=== PATIENT | male | born 1985 | race African-American/Black ===

== ENCOUNTER 2025-09-07 19:24 | Emergency (ER) | payer MEDICAID, SELFPAY ==
[2025-09-07 19:25] VITALS: BMI 37.2
--- NOTE | 2025-09-07 19:33 | EKG_ITS ---
[facility] Test Date: 2025-09-07 Pat Name: CLEVELAND ANDREW Department: Room: - Gender: Male Facility Supervisor: : [id number] Requested By: Joshua Haynes Order Number: [id number] Reading MD: Joshua Haynes Measurements Intervals [place] Rate: 103 P: 58 MS: 122 QRS: 9 QRSD: 84 T: 84 QT: 310 QTc: 408 Interpretive Statements SINUS TACHYCARDIA POSSIBLE LEFT ATRIAL ENLARGEMENT [-0.1mV P-WAVE IN V1/V2] POSSIBLE RIGHT VENTRICULAR CONDUCTION DELAY [RSR (QR) IN V1/V2] NONSPECIFIC ST & T-WAVE ABNORMALITY ABNORMAL RHYTHM ECG Compared to ECG 06/04/2024 21:37:42 T-wave abnormality now present Sinus rhythm no longer present /store/S0/[id number].pdf
[2025-09-07 19:39] VITALS: BP 150/100; PULSE 105; RESP 20; TEMP 36.9; O2SAT 95
--- NOTE | 2025-09-07 19:50 | XR_ITS ---
EXAMINATION: PA chest single view TECHNIQUE: Upright PA chest single view Date and time: September 07, 2025, 1753 hours, comparison June 04, 2024 INDICATIONS: Chest pain shortness of breath beginning 1 month ago FINDINGS: Atelectasis and/or pneumonia left base Marked elevation left hemidiaphragm Colonic ileus Blunting of the right lateral costophrenic angle Normal heart size No pulmonary edema IMPRESSION: Atelectasis and/or pneumonia left base clinical correlation advised
--- NOTE | 2025-09-07 19:51 | XR_ITS ---
Examination: Venous duplex lower extremity sonogram, bilateral. Date and time of exam: September 07, 2025, 0832 hours INDICATIONS: Leg pain and swelling, shortness of breath 1 month Technique: Multiple sonographic images of the deep venous system have been obtained. B-mode/2-D grayscale imaging of vascular structures and Doppler spectral analysis (waveforms) and color performed Both legs are examined. Findings: Deep venous systems do not demonstrate abnormal echogenicity. All visualized deep veins exhibit compressibility. All visualized deep veins exhibit augmentation. Impression: Negative for deep vein thrombosis
[2025-09-07 20:27] LABS: Basophils # (Auto) 0.1 Thou/mm3 (0.0-0.2); Basophils % (Auto) 1 % (0-2.5); Eosinophils # (Auto) 0.3 Thou/mm3 (0.0-0.5); Eosinophils % (Auto) 2 % (0-10); Hematocrit 42.0 % (41.0-53.0); Hemoglobin 13.8 g/dL (13.5-16.0); Immature Granulocytes Auto 0.04 Thou/mm3 (0.00-0.00); Lymphocytes # (Auto) 3.6 Thou/mm3 (1.0-4.8); Lymphocytes % (Auto) 28 % (10-50); Mean Corpuscular HGB Conc 32.9 g/dl (31.0-37.0); Mean Corpuscular Hemoglobin 28.3 pg (25.0-35.0); Mean Corpuscular Volume 86 fL (80-100); Monocytes # (Auto) 1.1 Thou/mm3 (0.0-0.8); Monocytes % (Auto) 8 % (0-12); Neutrophils # (Auto) 8.0 Thou/mm3 (1.8-7.7); Neutrophils % (Auto) 61 % (37-80); Nucleated Red Blood Cell # 0.00 Thou/mm3 (0.00-0.00); Nucleated Red Blood Cell % 0 /100 WBC (0); Platelet Count 294 Thou/mm3 (140-440); RDW Standard Deviation 42.0 fL (35.1-43.9); Red Blood Count 4.87 Miln/mm3 (4.50-5.90); White Blood Count 13.2 Thou/mm3 (3.8-10.6)
[2025-09-07 20:43] LABS: B-Type Natriuretic Peptide < 20 pg/mL (0-100); D-Dimer < 250 ng/mL (<600)
[2025-09-07 21:12] LABS: Collection Type, Urine Clean Catch
[2025-09-07 21:14] LABS: Alanine Aminotransferase 31 U/L (10-49); Albumin, Serum 4.7 gm/dL (3.5-5.0); Albumin/Globulin Ratio 1.7 (1.2-2.2); Alkaline Phosphatase 92 U/L (46-116); Anion Gap 6 (7-16); Aspartate Amino Transferase < 8 U/L (0-34); BUN/Creatinine Ratio 9 Ratio (12-20); Bilirubin,Total 0.4 mg/dL (0.3-1.2); Blood Urea Nitrogen 10 mg/dL (9-23); Calcium 9.8 mg/dL (8.3-10.6); Calcium (Corrected) 9.8 mg/dL (8.5-10.1); Carbon Dioxide 29.5 mMol/L (20.0-31.0); Chloride 106 mMol/L (98-107); Creatinine (Component) 1.1 mg/dL (0.6-1.3); Estimated Creatinine Clearance 131.3 mL/min (>60); Globulin 2.8 gm/dL (2.3-3.5); Glucose 106 mg/dL (74-106); Lipase 25 U/L (12-53); Osmolality,Calculated 280 (275-295); Potassium 4.2 mMol/L (3.4-5.1); Sodium 141 mMol/L (136-145); Thyroid Stimulating Hormone 1.42 uIU/mL (0.55-4.78); Total Protein 7.5 gm/dL (5.7-8.2); Troponin I < 0.020 ng/mL (0.0-0.045); eGFR > 60 See Note
[2025-09-07 21:29] LABS: Bilirubin,Urine Negative (Negative); Blood,Urine Negative (Negative); Clarity,Urine Clear (Clear/Hazy); Color,Urine Lt-Yellow (Lt Yel-Yel); Glucose, Urine Negative (Negative); Ketones,Urine Negative (Negative); Leukocyte Esterase,Urine Negative (Negative); Nitrite,Urine Negative (Negative); PH,Urine 6.5 (5.0-7.0); Protein,Urine Negative (Neg - Trace); RBC,Urine 3 /hpf (0-3); Specific Gravity,Urine 1.014 (1.001-1.035); Squamous Epithelial Cell,Urine < 1 /hpf (0-5); Urobilinogen,Urine Negative mg/dL (0.0-1.0); WBC,Urine 1 /hpf (0-5)
--- NOTE | 2025-09-07 21:49 | PRELIM_ITS ---
Radiograph of the chest (single view). September 07, 2025 at 1952 hours Clinical history: Shortness of breath. Comparison: No prior study is available for comparison. Findings: The heart, mediastinum, and pulmonary tracie are unremarkable. There is a small left pleural effusion with underlying consolidation. The bony thorax is unremarkable. Gas-distended bowel loops are seen in the left upper quadrant. Impression: Small left pleural effusion with underlying consolidation. Report Electronically Signed By: Adriano Schrader 09/07/2025 9:49:08 PM [EST]
--- NOTE | 2025-09-07 21:51 | PRELIM_ITS ---
Bilateral lower extremity venous Doppler ultrasound. September 07, 2025 2032 hours Clinical history: Deep vein thrombosis. Technique: Duplex scan of the bilateral lower extremity deep venous systems was performed utilizing 2D grayscale imaging, Doppler spectral analysis and color flow Doppler and with compression. Comparison: No prior study is available for comparison. Findings: Max scale, color flow and spectral Doppler evaluation of the lower extremity deep veins was performed. Right: The common femoral, superficial femoral and popliteal veins are patent and compressible. The great saphenous vein is patent at the level of the saphenofemoral junction. The peroneal and posterior tibial veins are patent and compressible to the extent visualized. Normal respiratory variation and augmentation are noted. There is no evidence of occlusive or nonocclusive thrombus. Left: The common femoral, superficial femoral and popliteal veins are patent and compressible. The great saphenous vein is patent at the level of the saphenofemoral junction. The peroneal and posterior tibial veins are patent and compressible to the extent visualized. Normal respiratory variation and a ugmentation are noted. There is no evidence of occlusive or nonocclusive thrombus. Impression: No sonographic evidence of deep venous thrombosis in both lower extremities. Report Electronically Signed By: Adriano Schrader 09/07/2025 9:50:25 PM [EST]
[2025-09-07 23:05] VITALS: BP 182/127; PULSE 92; RESP 20; TEMP 36.9; O2SAT 93
--- NOTE | 2025-09-07 23:08 | XR_ITS ---
Examination: CT chest, without intravenous contrast. Sagittal and coronal 2-D reconstructions. Exam date and time: September 08, 2025, 0020 hours INDICATION: Shortness of breath today CTDI:vol (mGy) 19.61 DLP: (mGycm) 949 Technique: Multiple 3.0 mm axial sections of the chest to been obtained. Bone and lung density settings are obtained. Sagittal and coronal 2-D reconstructions have been obtained. Low dose protocols were performed. One or more of the following dose reduction techniques were used; automated exposure control, adjustment of the mA and/or KV according to patient size, use of iterative reconstruction technique. Findings: No thoracic aortic aneurysm dilatation Pulmonary artery segments are nonenlarged No paratracheal tracheobronchial or bronchopulmonary adenopathy Atelectasis versus pneumonia left base Mild elevation left hemidiaphragm No pulmonary edema No visualized liver or splenic lesion No pancreatic or adrenal mass No hydronephrosis Adequate bone density Thoracolumbar dextroscoliosis IMPRESSION: Pneumonia versus atelectasis in the left lower lobe
[2025-09-07] MEDS: ALBUTEROL/IPRATROPIUM (Duoneb) RT SOL 3 ML NEBU INH (23:29)
[2025-09-07 23:30] VITALS: PULSE 83; RESP 23; O2SAT 88
[2025-09-07 23:34] LABS: Procalcitonin 0.06 ng/ml (0.0-0.49)
[2025-09-07 23:35] VITALS: BP 160/129; PULSE 81; RESP 20; TEMP 37; O2SAT 92
[2025-09-07 23:43] VITALS: BP 160/114; PULSE 81
[2025-09-07] MEDS: FUROSEMIDE INJ 10 MG/ML 4ML VIAL 80 MG IVP (23:43)
[2025-09-07] MEDS: AZITHROMYCIN INJ 500 MG in SODIUM CHLORIDE 0.9% 250 ML 250 ML 250 MG IV (23:44)
[2025-09-07 23:57] VITALS: BP 160/114; PULSE 81
--- NOTE | 2025-09-08 00:11 | PD.EDRME ---
Rapid Medical Screening Exam RME Arrival date/time: 09/07/25 19:24 This is a case of 39-year-old male who came into the emergency room due to chest pain and shortness of breath with palpitation on and off for 1 month worsening of the symptoms now also with swelling on both lower extremities thus decided to start consult here in the emergency room Chief Complaint: Shortness of Breath/Dyspnea Time Seen by Provider: 09/07/25 19:35 Vital signs: Vital Signs Temperature 98.4 F 09/07/25 19:39 Pulse Rate 105 H 09/07/25 19:39 Respiratory Rate 20 09/07/25 19:39 Blood Pressure 150/100 H 09/07/25 19:39 Pulse Oximetry (%) 95 09/07/25 19:39 Oxygen Delivery Method Room Air 09/07/25 19:39 Exam: Diminished breath sounds left with pitting edema 2+ Clinical Impression: Shortness of breath chest pain both lower extremities edema
--- NOTE | 2025-09-08 00:15 | PC.NURSE ---
Pt taken to CT via wheelchair
[2025-09-08] MEDS: LEVOFLOXACIN 250 MG TABLET 750 MG PO (00:35)
--- NOTE | 2025-09-08 00:35 | EDNOTE_ITS ---
ED SOB =RME/HPI General Chief Complaint: Shortness of Breath/Dyspnea Stated Complaint: SOB AND INTERMITENT CXP Time Seen by Provider: 09/07/25 19:35 Arrival date/time: 09/07/25 19:24 RME / HPI RME / HPI Narrative: 09/07/25 19:24 This is a case of 39-year-old male who came into the emergency room due to chest pain and shortness of breath with palpitation on and off for 1 month worsening of the symptoms now also with swelling on both lower extremities thus decided to start consult here in the emergency room DR. PIERRE MAIN ED EVALUATION: Patient presenting with progressive dyspnea/orthopnea for approximately 2 weeks duration. Denies sustained chest pain, productive cough, fever or chills. Does report occasional audible wheeze. No extremity pain or swelling. PMH: Recreational Drug Use, Asthma, Sleep Apnea, Bipolar Disorder, Depression, Anxiety and Attention Deficit Hyperactivity Disorder PSH: Non-contributory Allergies: Penicillin Social: Opioid Dependence, Positive Tobacco, No significant alcohol consumption Exam: Diminished breath sounds left with pitting edema 2+ Impression: Shortness of breath chest pain both lower extremities edema Related Data Previous Rx's ?Medication ?Instructions ?Recorded ciprofloxacin HCl 500 mg tablet 500 mg PO Q12H #14 tab s 03/11/23 (Cipro) dicyclomine 20 mg tablet 20 mg PO QID PRN abdominal p ain 03/11/23 #30 tabs metronidazole 500 mg tablet 500 mg PO TID #21 tabs 10/22 ibuprofen 600 mg tablet 600 mg PO Q8H PRN fever #20 tabs 03/04/24 albuterol sulfate 90 mcg/actuation 2 puff inhalation Q 6H PRN 09/08/25 aerosol inhaler (Ventolin HFA) shortness of breath or wheezing #8.5 grams hydrochlorothiazide 25 mg tablet 25 mg PO QAM #30 tabs 09/08/25 isosorbide dinitrate 30 mg tablet 30 mg PO DAILY #30 t abs 09/08/25 Allergies Allergy/AdvReac Type Severity Reaction Status Date / Time mustard Allergy Severe THROAT Verified 09/07/25 19:32 SWELLS,LIPS SWELL Penicillins Allergy Severe Rash Verified 09/07/25 19:32 shellfish derived Allergy Severe THROAT Verified 09/07/25 19:32 CLOSES,SWELLS UP,RASH Review of Systems Review of Systems Systems Reviewed: All systems reviewed, normal except as documented Past Medical History Past Medical History RESPIRATORY: Positive Asthma (sleep apnea) and Sleep Apnea PSYCHO/SOCIAL: Positive Bipolar Disorder, Depression, Anxiety and Attention Deficit Hyperactivity Disorder Social History SMOKING STATUS: Current every day smoker SUBSTANCE USE: other (Fentanyl) ED Exam Narrative Physical exam: GEN. APPEARANCE: The patient is alert awake oriented X-3 markedly hypertensive, notably hypoxic with O2 sats of 88%, tachypneic, conversational dyspnea. Patient has good eye contact. Patient is cooperative. VITALS: All vitals were reviewed and the pulse ox is 88%, which is low according to my interpretation HEENT: Normocephalic, atraumatic and nontender. Pupils are equal and reactive. Oral mucosa is moist. NECK: Supple, nontender, no meningismus, no JVD. There is no thyromegaly and no lymphadenopathy. CHEST: Nontender on palpation no deformity and no crepitus. CARDIOVASCULAR: Heart regular rhythm, no murmur or gallop rub or extra beats. LUNGS: Bibasillar rales and scattered wheeze with symmetrical chest rise. Tachypneic and conversational dyspnea. No intercostal subcostal retraction. No rales and no rhonchi. ABDOMEN: Soft, flat, nontender to palpation, no guarding or rebound tenderness. There are no abnormal masses palpated. No pulsatile masses or bruits. Active and normal bowel sounds. EXTREMITIES: Normal inspection and palpation. No edema. No cyanosis. Patient is able to move all 4 extremities well SKIN: Warm and dry, no rashes noted. MUSCULOSKELETAL: No lumbar or midline bony tenderness. There is no CVA tenderness. No paraspinal muscle spasm or tenderness. NEURO: Cranial nerves II through XII grossly intact. There are no focal neurologic deficits noted. GCS is 15 PSYCHIATRIC: Patient is in normal mood and affect, cooperative. LYMPHATICS: No major lymphadenopathy noted. Course Quality Measures none Orders Category Date Time Status EKG (ED ONLY) *Do not use* NOW Care 09/07/25 19:33 Completed CA echo doppler complete Stat Exams 09/07/25 23:[address] chest wo con Stat Exams 09/07/25 23:08 Taken EKG (ED Only) Stat Exams 09/07/25 19:33 Draft US venous doppler LE BI Stat Exams 09/07/25 19:51 Taken XR chest 1V Stat Exams 09/07/25 19:50 Taken BNP [B-Type Natriuretic Peptide] Stat Lab 09/07/25 20:15 Completed Blood Culture (Lab) Stat Lab 09/07/25 23:20 Received CBC Stat Lab 09/07/25 20:15 Completed Cocci Serology IgM with reflex to IgG [Cocci Serology, Lab 09/07/25 23:28 Received Unk History] Routine Comprehensive Metabolic Panel Stat Lab 09/07/25 20:15 Completed D-Dimer Stat Lab 09/07/25 20:15 Completed Drug Screen,Urine Stat Lab 09/08/25 00:22 Completed Lipase Stat Lab 09/07/25 20:15 Completed Procalcitonin Stat Lab 09/07/25 20:15 Completed TSH [Thyroid Stimulating Hormone] Stat Lab 09/07/25 20:15 Completed Troponin I Stat Lab 09/07/25 20:15 Completed Urinalysis Stat Lab 09/07/25 20:38 Completed Albuterol/Ipratr Rt Elisabeth [Duoneb Rt Elisabeth] Med 09/07/25 23:10 Discontinued 3 ml INH X1 ONE Azithromycin Inj [Zithromax Inj] 500 mg Med 09/07/25 23:05 Discontinued Sodium Chloride 0.9% 250 ml [Ns] 250 ml IV X1 Furosemide Inj [Lasix Inj] Med 09/07/25 23:04 Discontinued 80 mg IVP X1 ONE Levofloxacin [Levaquin] Med 09/08/25 00:05 Discontinued 750 mg PO X1 ONE Levofloxacin/D5w 750Mg Ivpb [Levaquin Ivpb] Med 09/08/25 00:03 Discontinued 750 mg in 150 ml IV X1 Lisinopril [Prinivil] Med 09/07/25 23:09 Discontinued 10 mg PO X1 ONE MethylPREDNISolone. [SoluMEDROL Inj] Med 09/07/25 23:10 Discontinued 40 mg IVP X1 ONE Nitroglycerin Oint 2% [Nitro-paste Oint 2%] Med 09/08/25 00:38 Discontinued 1 inch TOP X1 ONE cefTRIAXone [Rocephin] 2 gm Med 09/07/25 23:05 Discontinued SODIUM CHLORIDE 0.9% (Popper) [Ns 0.9% (P)] 50 ml IV X1 Vital Signs Vital signs: Vital Signs Temperature 98.4 F 09/07/25 19:39 Pulse Rate 105 H 09/07/25 19:39 Respiratory Rate 20 09/07/25 19:39 Blood Pressure 150/100 H 09/07/25 19:39 Pulse Oximetry (%) 95 09/07/25 19:39 Oxygen Delivery Method Room Air 09/07/25 19:39 Shortness of Breath / Dyspnea MDM Narrative MDM Narrative:: Scribe Attestation: Kate Medina am scribing for and in the presence of Dr. Norton. Provider Notation: Although this document has been carefully reviewed, there may still be some phonetic and other typographical errors. These errors are purely grammatical due to imperfections in the software program and should not be construed in any way to compromise the substance of the patient's medical care during this visit. Patient presenting with progressive dyspnea/orthopnea for approximately 2 weeks duration. Denies sustained chest pain, productive cough, fever or chills. Please see PE findings. Laboratory markers including CBC and serum chemistries demonstrated marginally elevated WBC of 13.2, stable hemoglobin at 13.8, and no thrombocypenia. Serum chemistries essentially unremarkable. Troponin I undetected. Toxicology screen positive for Fentanyl. CXR normal cardiac silhouette, no pulmonary edema, patient treated with topical nitrates, IV diuretics with brisk diuresis and gradual reduction in BP. Patient had pressing personal issues and repeatedly voiced a preference to be released to home. Will discharge to home on anti-hypertensive, inhaler, and long-acting nitrates. Final diagnoses include Accelerated HTN, Mild CHF, Substance abuse, and Hypoxia. Patient data External records reviewed:: [facility] previous records (Reviewed prior ED records from 06/05/24. Patient was seen for Pneumonia.) Clinical information provided by:: patient Social determinants that could affect healthcare access:: substance use (Fentanyl) Patient has the following chronic illnesses:: Recreational Drug Use, Asthma, Sleep Apnea, Bipolar Disorder, Depression, Anxiety and Attention Deficit Hyperactivity Disorder How is presenting disease/condition affected by chronic disease/condition?: exacerbated by Evaluation data The following diagnostics were reviewed and interpreted by me:: lab results, radiology exam(s) and EKG tracing(s) (EKG demonstrates sinus tachycardia with rate of 103 bpm, no acute ST segment changes, no ventricular ectopy, axis leftward, evidence of LVH by voltage criteria, per my interpretation.) Lab and/or radiology exams considered but not ordered:: None Interpretation Summary: RADIOLOGY Chest CT: Findings: Consolidation is seen in the lingula and left lower lobe. There is no evidence of pleural effusion or pneumothorax. The mediastinum demonstrates no evidence of mass or lymphadenopathy. The thoracic aorta is unremarkable. There is no pericardial effusion. The osseous structures are unremarkable. The visualized upper abdominal viscera are unremarkable on this noncontrast study. Impression: Foci of pneumonia in the lingula and left lower lobe. No pleural effusions. Venous Doppler Study: No DVT. Pending official radiology report. Chest X-Ray: Pending official radiology report. Medications / Prescriptions Medications or Prescriptions considered but not ordered:: None Medication administrations:: Medication Administration History Discontinued Medications Albuterol/Ipratropium (Albuterol/Ipratropium (Duoneb) Rt Elisabeth 3 Ml Nebu) 3 ml INH X1 ONE Stop: 09/07/25 23:11 Last Admin: 09/07/25 23:29 Dose: 3 ml Documented By: KB Furosemide (Furosemide Inj 10 Mg/Ml 4ml Vial) 80 mg IVP X1 ONE Stop: 09/07/25 23:05 Last Admin: 09/07/25 23:43 Dose: 80 mg Documented By: CCT Ceftriaxone Sodium 2 gm/ (Sodium Chloride) 50 mls @ 100 mls/hr IV X1 ONE Stop: 09/07/25 23:34 Last Admin: 09/08/25 01:11 Dose: Not Given Documented By: CCT Non-Admin Reason: Discontinued Azithromycin 500 mg/ Sodium (Chloride) 250 mls @ 250 mls/hr IV X1 ONE Stop: 09/08/25 00:04 Last Infusion: 09/08/25 01:20 Dose: Infused Documented By: Admin: 09/07/25 23:44 Dose: 250 mls/hr Documented By: CCT Levofloxacin/Dextrose (Levaquin Ivpb) 750 mg in 150 mls @ 100 mls/hr IV X1 ONE Stop: 09/08/25 01:32 Last Admin: 09/08/25 00:30 Dose: Not Given Documented By: CCT Non-Admin Reason: Discontinued Levofloxacin (Levofloxacin 250 Mg Tablet) 750 mg PO X1 ONE Stop: 09/08/25 00:06 Last Admin: 09/08/25 00:35 Dose: 750 mg Documented By: CCT Lisinopril (Lisinopril 2.5 Mg Tablet) 10 mg PO X1 ONE Stop: 09/07/25 23:10 Last Admin: 09/07/25 23:57 Dose: 10 mg Documented By: CCT Methylprednisolone Sodium Succinate (Methylprednisolone Sod Succ 40 Mg/Ml Vial) 40 mg IVP X1 ONE Stop: 09/07/25 23:11 Last Admin: 09/07/25 23:43 Dose: 40 mg Documented By: CCT Nitroglycerin (Nitroglycerin Oint 2% 1 Inch Packet) 1 inch TOP X1 ONE Stop: 09/08/25 00:39 Last Admin: 09/08/25 00:42 Dose: 1 inch Documented By: CCT See above if any Consultations Consultation(s) initiated? (list below): No Diagnosis Shortness of Breath Differential Diagnosis: congestive heart failure, community acquired pneumonia, asthma with exacerbation and pulmonary embolism Most likely diagnosis given after review of the tests above:: Accelerated HTN, Mild CHF, Substance abuse, and Hypoxia Admission Indicated Admission indicated?: not indicated Explain why admission is indicated or not indicated:: Patient expresses strong desire to be discharged home Admission Request Was there a request for admission?: No Disposition Plan Disposition Plan: Discharge Discharge Attestation Discharge Attestation: The patient and all family members were given an opportunity to ask questions and understood the discharge instructions. Discharge instructions specifically effects, indications for sooner follow up or return to the emergency department, and the expected course of current diagnosis. Patient condition: Stable Critical Care Time Critical Care Time Critical Care Time: Yes Total Critical Care Time (min.): 40 Attestation: The high probability of sudden, clinically significant deterioration in the patient?s condition required the highest level of my preparedness to intervene urgently. The services I provided to this patient were to treat and/or prevent clinically significant deterioration. Services included the following: chart data review, reviewing nursing notes and/or old charts, documentation time, telecommunications consultant collaboration regarding findings and treatment options, medication orders and management, direct patient care, vital sign assessments and ordering, interpreting and reviewing diagnostic studies and lab tests. Aggregate critical care time includes only time during which I was engaged in work directly related to the patient?s care, as described above, whether at bedside or elsewhere in the Emergency Department. It did not include time spent performing other reported procedures or the services of residents, students, nurses or physician assistants. Discharge Plan Plan Patient Disposition: HOME (Self Care) Discharge Disposition comment: stable Prescriptions/Referrals Prescriptions/Med Rec: New hydrochlorothiazide 25 mg tablet 25 mg PO QAM Qty: 30 0RF isosorbide dinitrate 30 mg tablet 30 mg PO DAILY Qty: 30 1RF Rx Instructions: allow nitrate-free interval of 12-14 hrs per 24-hr period albuterol sulfate [Ventolin HFA] 90 mcg/actuation HFA aerosol inhaler 2 puff inhalation Q6H PRN (Reason: shortness of breath or wheezing) Qty: 8.5 1RF No Action ibuprofen 600 mg tablet 600 mg PO Q8H PRN (Reason: fever) Qty: 20 0RF metronidazole 500 mg tablet 500 mg PO TID Qty: 21 0RF ciprofloxacin HCl [Cipro] 500 mg tablet 500 mg PO Q12H Qty: 14 0RF Rx Instructions: administer dose at least 2 hrs before/6 hrs after dairy products, calcium, zinc, and/or iron-containing products dicyclomine 20 mg tablet 20 mg PO QID PRN (Reason: abdominal pain) Qty: 30 0RF Referrals: No Primary/Family,Physician [Primary Care Provider] - In 1 week Problem List Clinical Impression: Mild congestive heart failure, Accelerated hypertension, Hypoxia, Substance abuse Impression comment: Accelerated hypertension/hypoxia Patient/Caregiver Discharge Instructions Discharge Activity: activity as tolerated Diet Instructions: Low-salt intake Education Materials: Controlling High Blood Pressure, Your Heart Is at Risk, ED Hypertension, New (Begin Treatment) Additional Instructions: Medications as directed. Follow-up with primary care doctor for further e valuation monitoring and treatment. Print Language: Polish Stand Alone Forms: [place]., Patient Portal Info Letter
[2025-09-08 00:42] VITALS: BP 134/95; PULSE 86; RESP 20; TEMP 36.9; O2SAT 93
[2025-09-08] MEDS: NITROGLYCERIN OINT 2% 1 INCH PACKET TOP (00:42)
[2025-09-08 01:02] LABS: Amphetamine/Methamp Scrn,U Negative (Negative); Barbiturate Screen,Urine Negative (Negative); Benzodiazepines Screen,Urine Negative (Negative); Benzoylecgonine Screen, Ur Negative (Negative); Fentanyl Screen,Urine Positive (Negative); Opiate Screen,Urine Negative (Negative); THC Screen,Urine Negative (Negative)
[2025-09-08 01:35] VITALS: BP 139/98; PULSE 90; RESP 19; TEMP 36.8; O2SAT 93
--- NOTE | 2025-09-08 02:10 | PRELIM_ITS ---
CT scan of the chest without intravenous contrast (axial sections with sagittal and coronal reformats): September 08, 2025 at 0024 hours Clinical History: Pleural effusion. Comparison: X-ray on September 07, 2025. Findings: Consolidation is seen in the lingula and left lower lobe. There is no evidence of pleural effusion or pneumothorax. The mediastinum demonstrates no evidence of mass or lymphadenopathy. The thoracic aorta is unremarkable. There is no pericardial effusion. The osseous structures are unremarkable. The visualized upper abdominal viscera are unremarkable on this noncontrast study. Impression: Foci of pneumonia in the lingula and left lower lobe. No pleural effusions. Report Electronically Signed By: Yan Shepherd 09/08/2025 2:10:38 AM [EST]
[2025-09-08 13:11] LABS: Cocci Serology, IgM Negative (Negative)
[2025-09-09 13:34] LABS: Cocci Serology, IgG Negative (Negative)
== END 2025-09-08 01:35 | disposition home or self-care (01) ==
PROVIDERS: Nurse Practitioner Family; Student in an Organized Health Care Education/Training Program; Emergency Provider Emergency Medicine
DX: I11.0 Hypertensive heart disease with heart failure (principal); I50.9 Heart failure, unspecified; F11.20 Opioid dependence, uncomplicated; R09.02 Hypoxemia; J18.9 Pneumonia, unspecified organism; R00.0 Tachycardia, unspecified; F17.200 Nicotine dependence, unspecified, uncomplicated; M79.89 Other specified soft tissue disorders
CPT/HCPCS: 36415; 71045; 71250; 80053; 80307; 81001; 83690; 83880; 84145; 84443; 84484; 85025; 85379; 86331; 86635; 87040; 93005; 93970; 94640; 96365; 96366; 96375; 99284; A9270; J0456; J1938; J2919; J7050